=== PATIENT | female | born 1995 | race Caucasian/White ===

== ENCOUNTER 2019-04-19 15:08 | Emergency (ER) | payer MEDICAID ==
[~2019-04-19] VITALS: Ht 165.1 cm; Wt 67.1 kg
[~2019-04-19 15:08] MED LIST: PRENPAK56 PO
[2019-04-19 15:46] LABS: Basophils # (auto) 0.1 uL; Basophils % (auto) 0.5 % (0.0-2.0); Eosinophils # (auto) 0.1 uL; Eosinophils % (auto) 0.6 % (0.0-7.0); Hematocrit 38.2 % (36.0-46.0); Hemoglobin 13.1 g/dL (12.2-16.2); Lymphocytes # (auto) 1.6 uL; Lymphocytes % (auto) 12.1 % (10.0-50.0); Mean Corpuscular Hemoglobin 31.3 pg (28.0-32.0); Mean Corpuscular Hgb Conc. 34.3 g/dL (32.0-36.0); Mean Corpuscular Volume 91.4 fL (80.0-100.0); Monocytes # (auto) 0.9 uL; Monocytes % (auto) 6.9 % (0.0-12.0); Neutrophils # (auto) 10.7 uL; Neutrophils % (auto) 79.9 % (37.0-80.0); Platelet Count (auto) 283 10^3/uL (140-450); Red Blood Cells 4.18 10^6/uL (4.0-5.20); Red Cell Distribution Width 12.9 % (11.8-14.3); White Blood Cell 13.4 10^3/uL (4.4-10.8)
[2019-04-19 16:02] LABS: Albumin 3.4 g/dL (3.4-5.0); Calcium 8.6 mg/dL (8.5-10.1); Potassium 3.8 mmol/L (3.5-5.1)
[2019-04-19 16:05] LABS: Bilirubin, Total 1.1 mg/dL (0.2-1.0); Total Protein 7.8 g/dL (6.4-8.2)
[2019-04-19] MEDS ORDERED: SODIUM CHLORIDE 0.9% 1,000 ML IV ONE (16:45)
[2019-04-19 17:54] LABS: Urine Bacteria FEW /hpf (None Seen); Urine Blood Negative /uL (Negative); Urine Mucus FEW (None Seen); Urine Specific Gravity 1.029 (1.001-1.035); Urine WBC 16 /hpf (0 - 5)
[2019-04-19 18:33] VITALS: BP 105/69
== END 2019-04-19 18:33 | disposition home or self-care (01) ==
LOC: ER 15:08
DX: O23.42 Unspecified infection of urinary tract in pregnancy, second trimester (principal); O21.8 Other vomiting complicating pregnancy; Z3A.19 19 weeks gestation of pregnancy
CPT/HCPCS: 36415; 76805; 80053; 81001; 84702; 85025; 96360; 99284; J7030

== ENCOUNTER 2019-04-29 22:16 | Emergency (ER) | payer MEDICAID ==
[~2019-04-29] VITALS: Ht 160 cm; Wt 72.6 kg
[2019-04-29 23:49] LABS: Basophils # (auto) 0 uL; Basophils % (auto) 0.4 % (0.0-2.0); Eosinophils # (auto) 0.1 uL; Eosinophils % (auto) 0.7 % (0.0-7.0); Hematocrit 36.7 % (36.0-46.0); Hemoglobin 12.2 g/dL (12.2-16.2); Lymphocytes # (auto) 1.3 uL; Lymphocytes % (auto) 9.6 % (10.0-50.0); Mean Corpuscular Hemoglobin 30.7 pg (28.0-32.0); Mean Corpuscular Hgb Conc. 33.3 g/dL (32.0-36.0); Mean Corpuscular Volume 92.2 fL (80.0-100.0); Monocytes % (auto) 7.3 % (0.0-12.0); Neutrophils # (auto) 10.9 uL; Platelet Count (auto) 258 10^3/uL (140-450); Red Blood Cells 3.99 10^6/uL (4.0-5.20); Red Cell Distribution Width 12.5 % (11.8-14.3); White Blood Cell 13.2 10^3/uL (4.4-10.8)
[2019-04-29 23:57] LABS: Urine Bacteria FEW /hpf (None Seen); Urine Blood Negative /uL (Negative); Urine Mucus FEW (None Seen); Urine Specific Gravity 1.029 (1.001-1.035); Urine WBC 8 /hpf (0 - 5)
[2019-04-30 00:08] LABS: INR < 0.93 (0.9-1.15); Partial Thromboplastin Time 25.6 sec (23.64-32.05)
[2019-04-30 00:10] LABS: Albumin 3.1 g/dL (3.4-5.0); BUN/Creatinine Ratio 24.2; Calcium 8.4 mg/dL (8.5-10.1); Potassium 3.9 mmol/L (3.5-5.1)
[2019-04-30 00:18] LABS: Bilirubin, Total 0.7 mg/dL (0.2-1.0); Total Protein 7.1 g/dL (6.4-8.2)
[2019-04-30] MEDS ORDERED: SODIUM CHLORIDE 0.9% 1,000 ML IV ONE (00:30)
[2019-04-30 01:00] VITALS: BP 105/61
== END 2019-04-30 02:30 | disposition home or self-care (01) ==
LOC: EDBD 22:16 → ER 22:20
DX: O26.892 Other specified pregnancy related conditions, second trimester (principal); S80.212A Abrasion, left knee, initial encounter; S80.211A Abrasion, right knee, initial encounter; S60.812A Abrasion of left wrist, initial encounter; R55 Syncope and collapse; O23.42 Unspecified infection of urinary tract in pregnancy, second trimester; O99.012 Anemia complicating pregnancy, second trimester; Z3A.21 21 weeks gestation of pregnancy; W19.XXXA Unspecified fall, initial encounter; Y93.89 Activity, other specified; Y92.89 Other specified places as the place of occurrence of the external cause; Y99.8 Other external cause status
CPT/HCPCS: 36415; 76805; 80053; 81001; 84702; 85025; 85610; 85730; 93005; 96360; 99284; J7030

== ENCOUNTER 2019-07-26 20:22 | Observation (INO) | payer MEDICAID ==
[~2019-07-26] VITALS: Ht 162.6 cm; Wt 73.9 kg
[2019-07-26] MEDS ORDERED: LACTATED RINGER'S 1,000 ML IV ONE (20:56)
[2019-07-26] MEDS ORDERED: ONDANSETRON HCL 4 MG/2 ML VIAL IV ONE (21:00)
[2019-07-26] MEDS ORDERED: ACETAMINOPHEN 650 mg PER 20 mL UD PO ONE (21:00)
[2019-07-26] MEDS ORDERED: LACTATED RINGER'S 2,000 ML IV ONE (21:15)
[2019-07-26] MEDS ORDERED: ACETAMINOPHEN 325 MG TAB PO ONE (21:30)
[2019-07-26 22:04] LABS: Urine Bacteria FEW /hpf (None Seen); Urine Blood Negative /uL (Negative); Urine Mucus FEW (None Seen); Urine Specific Gravity 1.022 (1.001-1.035); Urine WBC 9 /hpf (0 - 5)
[2019-07-26 22:06] LABS: Alcohol, Urine < 3.0 mg/dL (0-5); Amphetamine Screen, Urine NEGATIVE (NEGATIVE); Barbiturate Scree,Urine NEGATIVE (NEGATIVE); Benzodiazephine Screen, Urine NEGATIVE (NEGATIVE); Cannabinoid Screen, Urine POSITIVE (NEGATIVE); Cocaine Screen, Urine NEGATIVE (NEGATIVE); Opiate Scree,Urine NEGATIVE (NEGATIVE); Phencyclidine Screen, Urine NEGATIVE (NEGATIVE)
[2019-07-26] MEDS: TERBUTALINE SULFATE 1 MG/ML 1ML VIAL SC SCH ×2 (22:51→23:44)
[2019-07-27] MEDS ORDERED: NIFEdipine 10 MG CAP PO ONE (00:30)
[2019-07-27] MEDS ORDERED: NIFEdipine 10 MG CAP ONE (00:33)
[2019-07-27] MEDS ORDERED: BETAMETHASONE ACET (6MG/ML) 5ML VIAL ONE (00:42)
[2019-07-27] MEDS ORDERED: BETAMETHASONE ACET (6MG/ML) 5ML VIAL IM SCH (01:00)
== END 2019-07-27 01:55 | disposition home or self-care (01) | DRG 566 ==
LOC: LDRP 20:22
PROVIDERS: ADMIT Obstetrics & Gynecology; ATTEND Obstetrics & Gynecology
DX: O21.2 Late vomiting of pregnancy (principal); E86.0 Dehydration; O99.283 Endocrine, nutritional and metabolic diseases complicating pregnancy, third trimester; O36.8130 Decreased fetal movements, third trimester, not applicable or unspecified; O62.9 Abnormality of forces of labor, unspecified; Z88.0 Allergy status to penicillin; Z87.891 Personal history of nicotine dependence; Z3A.33 33 weeks gestation of pregnancy
CPT/HCPCS: 59025; 80307; 81001; 81002; 84112; 94760; 96361; 96372; 96374; G0378; J0702; J2405; J3105; 96365; 96366

== ENCOUNTER 2019-07-27 21:49 | Observation (INO) | payer MEDICAID ==
[~2019-07-27] VITALS: Ht 162.6 cm; Wt 74.4 kg
[2019-07-27] MEDS ORDERED: BETAMETHASONE ACET (6MG/ML) 5ML VIAL IM SCH (22:00)
== END 2019-07-27 22:27 | disposition home or self-care (01) | DRG 563 ==
LOC: LDRP 21:49
PROVIDERS: ADMIT Obstetrics & Gynecology; ATTEND Obstetrics & Gynecology
DX: O60.03 Preterm labor without delivery, third trimester (principal); Z3A.33 33 weeks gestation of pregnancy; Z88.0 Allergy status to penicillin; Z87.891 Personal history of nicotine dependence
CPT/HCPCS: 59025; 81002; 96372; G0378

== ENCOUNTER 2019-08-21 09:56 | Observation (INO) | payer MEDICAID ==
[2019-08-22] MEDS ORDERED: PROGSUP3 VA (07:30)
[2019-08-22] MEDS ORDERED: NIF10C PO (07:31)
== END 2019-08-21 12:45 | disposition home or self-care (01) | DRG 566 ==
LOC: LDRP 09:56
PROVIDERS: ADMIT Obstetrics & Gynecology; ATTEND Obstetrics & Gynecology
DX: O26.613 Liver and biliary tract disorders in pregnancy, third trimester (principal); K83.1 Obstruction of bile duct; Z87.891 Personal history of nicotine dependence; Z3A.37 37 weeks gestation of pregnancy
CPT/HCPCS: 59025; 76818; 81002; G0378

== ENCOUNTER 2019-08-22 07:00 | Inpatient (IN) | payer MEDICAID ==
[~2019-08-22] VITALS: Ht 162.6 cm; Wt 64.9 kg
[2019-08-22] MEDS ORDERED: PROGSUP3 VA (07:30)
[2019-08-22] MEDS ORDERED: NIF10C PO (07:31)
[2019-08-22] MEDS ORDERED: LACT. RINGERS/OXYTOCIN 20UNITS 1,000 ML IV SCH (07:34)
[2019-08-22] MEDS ORDERED: PHISODERM TOP SOLN 240ML BTL TOP PRN (07:45)
[2019-08-22] MEDS ORDERED: DERMOPLAST 60ML BOTTLE TOP PRN (07:45)
[2019-08-22] MEDS ORDERED: LIDOCAINE 2%HCL (LOCAL ANESTH.) INJ 20ML MDV ID ONE (07:45)
[2019-08-22] MEDS ORDERED: WITCH HAZEL-GLYCERIN PAD TOP PRN (07:45)
[2019-08-22 08:26] LABS: Basophils # (auto) 0.1 10 ^3/uL (0-0.2); Basophils % (auto) 0.9 % (0.0-2.0); Eosinophils # (auto) 0.2 10 ^3/uL (0-0.8); Eosinophils % (auto) 1.6 % (0.0-7.0); Hematocrit 36.1 % (36.0-46.0); Hemoglobin 12.5 g/dL (12.2-16.2); Lymphocytes # (auto) 1.5 10 ^3/uL (0.4-5.4); Lymphocytes % (auto) 14.3 % (10.0-50.0); Mean Corpuscular Hemoglobin 30.3 pg (28.0-32.0); Mean Corpuscular Hgb Conc. 34.5 g/dL (32.0-36.0); Mean Corpuscular Volume 87.9 fL (80.0-100.0); Monocytes # (auto) 0.9 10 ^3/uL (0-1.3); Monocytes % (auto) 8.4 % (0.0-12.0); Neutrophils # (auto) 7.9 10 ^3/uL (1.6-8.6); Neutrophils % (auto) 74.8 % (37.0-80.0); Platelet Count (auto) 319 10^3/uL (140-450); Red Blood Cells 4.11 10^6/uL (4.0-5.20); Red Cell Distribution Width 13.6 % (11.8-14.3); White Blood Cell 10.6 10^3/uL (4.4-10.8)
[2019-08-22 08:35] LABS: Urine Bacteria FEW /hpf (None Seen); Urine Blood Negative /uL (Negative); Urine Specific Gravity 1.005 (1.001-1.035); Urine WBC <1 /hpf (0 - 5)
[2019-08-22 08:44] LABS: INR 0.93 (0.9-1.15); Partial Thromboplastin Time 25.8 sec (23.64-32.05)
[2019-08-22 08:47] LABS: Albumin 2.7 g/dL (3.4-5.0); Calcium 9.1 mg/dL (8.5-10.1); Potassium 3.9 mmol/L (3.5-5.1)
[2019-08-22 08:50] LABS: Alcohol, Urine < 3.0 mg/dL (0-5); Amphetamine Screen, Urine NEGATIVE (NEGATIVE); Barbiturate Scree,Urine NEGATIVE (NEGATIVE); Benzodiazephine Screen, Urine NEGATIVE (NEGATIVE); Cannabinoid Screen, Urine NEGATIVE (NEGATIVE); Cocaine Screen, Urine NEGATIVE (NEGATIVE); Opiate Scree,Urine NEGATIVE (NEGATIVE); Phencyclidine Screen, Urine NEGATIVE (NEGATIVE)
[2019-08-22 08:51] LABS: BUN/Creatinine Ratio 14.7; Bilirubin, Total 0.8 mg/dL (0.2-1.0); Total Protein 7.8 g/dL (6.4-8.2)
[2019-08-22] MEDS ORDERED: miSOPROStol 50 MCG per PRE-CUT 1/2 TAB ONE (08:59)
[2019-08-22] MEDS ORDERED: miSOPROStol 50 MCG per PRE-CUT 1/2 TAB PO PRN (09:00)
[2019-08-22] MEDS: LACTATED RINGER'S 1,000 ML IV SCH ×2 (09:10→17:08)
[2019-08-22] MEDS ORDERED: BUTORPHANOL TARTRATE 2 MG/1 ML VIAL IV PRN (13:15)
[2019-08-22] MEDS ORDERED: PROMETHAZINE HCL 25 MG/ML 1ML IV PRN (13:15)
[2019-08-22] MEDS ORDERED: CLINDAMYCIN 900MG IV 50 ML IV SCH ×2 (14:00→17:00)
[2019-08-22] MEDS: URSODIOL 300 MG CAP PO SCH (21:34)
[2019-08-22 23:00] VITALS: BP 128/65
[2019-08-22] MEDS ORDERED: INFLUENZA QUAD 2019-2020 0.5ml SYRG IM ONE (23:30)
[2019-08-23] MEDS: IBUPROFEN 600 MG TAB PO PRN ×2 (01:21→05:52)
[2019-08-23 03:00] VITALS: BP 104/58
[2019-08-23] MEDS: URSODIOL 300 MG CAP PO SCH ×3 (05:52→22:03)
[2019-08-23 07:06] LABS: RPR Non Reactive (Non Reactive)
[2019-08-23 07:15] VITALS: BP 127/93
[2019-08-23 10:53] VITALS: BP 132/82
[2019-08-23 15:08] VITALS: BP 127/79
[2019-08-23 18:45] VITALS: BP 135/72
[2019-08-23 23:00] VITALS: BP 130/78
[2019-08-24 03:00] VITALS: BP 119/70
[2019-08-24] MEDS: URSODIOL 300 MG CAP PO SCH (06:00)
[2019-08-24 07:05] VITALS: BP 109/67
[2019-08-24 09:14] LABS: Albumin 2.6 g/dL (3.4-5.0); Calcium 9.3 mg/dL (8.5-10.1); Potassium 3.8 mmol/L (3.5-5.1)
[2019-08-24 09:17] LABS: Bilirubin, Total 0.5 mg/dL (0.2-1.0); Total Protein 7.3 g/dL (6.4-8.2)
[2019-08-24 09:22] LABS: Basophils # (auto) 0.1 10 ^3/uL (0-0.2); Basophils % (auto) 0.7 % (0.0-2.0); Eosinophils # (auto) 0.3 10 ^3/uL (0-0.8); Hematocrit 35.5 % (36.0-46.0); Hemoglobin 11.9 g/dL (12.2-16.2); Lymphocytes # (auto) 1.9 10 ^3/uL (0.4-5.4); Lymphocytes % (auto) 16.8 % (10.0-50.0); Mean Corpuscular Hemoglobin 29.8 pg (28.0-32.0); Mean Corpuscular Hgb Conc. 33.6 g/dL (32.0-36.0); Mean Corpuscular Volume 88.6 fL (80.0-100.0); Monocytes # (auto) 0.9 10 ^3/uL (0-1.3); Monocytes % (auto) 8.4 % (0.0-12.0); Neutrophils # (auto) 7.8 10 ^3/uL (1.6-8.6); Neutrophils % (auto) 71.1 % (37.0-80.0); Nucleated Red Blood Cells % 0.1 %; Platelet Count (auto) 328 10^3/uL (140-450); Red Blood Cells 4.01 10^6/uL (4.0-5.20); Red Cell Distribution Width 13.5 % (11.8-14.3)
[2019-08-24 11:20] VITALS: BP 111/72
== END 2019-08-24 12:00 | disposition home or self-care (01) | DRG 560 ==
LOC: LDRP 07:00
PROVIDERS: ADMIT Specialist; ATTEND Specialist
PROC: 10E0XZZ Delivery of Products of Conception, External Approach (ICD-10-PCS; principal; 2019-08-22)
PROC: 10907ZC Drainage of Amniotic Fluid, Therapeutic from Products of Conception, Via Natural or Artificial Opening (ICD-10-PCS; 2019-08-22)
PROC: 3E033VJ Introduction of Other Hormone into Peripheral Vein, Percutaneous Approach (ICD-10-PCS; 2019-08-22)
DX: O99.824 Streptococcus B carrier state complicating childbirth (principal); K83.1 Obstruction of bile duct; Z37.0 Single live birth; O26.62 Liver and biliary tract disorders in childbirth; Z3A.37 37 weeks gestation of pregnancy
CPT/HCPCS: 36415; 59409; 80053; 80307; 81001; 84112; 85025; 85610; 85730; 86592; 86850; 86900; 86901; 94760; 96361; 96365; 96366; 96372; 96374; 96375; G0378; J2590; J3490